=== PATIENT | female | born 1955 | race Caucasian/White ===

== ENCOUNTER → 2021-04-01 09:40 | Outpatient (CLI) | payer BC, SELFPAY ==
--- NOTE | ~2021-04-01 | US_ITS ---
EXAMINATION: US thyroid DATE: 04/01/2021 10:34 INDICATION: Multinodular goiter. TECHNIQUE: Multiple ultrasound images of the thyroid were obtained. COMPARISON: Ultrasound 06/13/2017 FINDINGS: The right thyroid lobe measures 5.9 x 3.3 x 2.0 cm. The left thyroid lobe measures 5.2 x 3.0 x 2.3 c m. There are numerous nodules in the thyroid. In the right thyroid lobe, there is an 11 mm solid, hy poechoic, chlkq-drtx-ozxd nodule with ill-defined margin without echogenic foci (TI-RADS TR4). In the right thyroid lobe, there is a 1.2 cm solid, hypoechoic, trdylu-zbaw-iqlx nodule with smooth margin without echogenic foci (TR5), increased from 1.0 cm. In the left thyroid lobe, there is a 1.9 cm sam d, hypoechoic, dhntp-zlzx-qzhd nodule with irregular margin and punctate echogenic foci (TR5), increa sed from 1.7 cm. In the left thyroid lobe, there is a 1.9 cm solid, hypoechoic, inzlb-onaq-dcha nodul e with lobulated margin without echogenic foci (TR4), increased from 1.7 cm. IMPRESSION: 1. Multinodular goiter. Ultrasound-guided fine-needle aspiration of 2 nodules is recommended. Reviewed, dictated and finalized at location A. IMPRESSION: 1. Multinodular goiter. Ultrasound-guided fine-needle aspiration of 2 nodules i s recommended.
== END ==
DX: E04.2 Nontoxic multinodular goiter (principal)
CPT/HCPCS: 76536

== ENCOUNTER → 2022-06-24 12:48 | Outpatient (CLI) | payer BC, SELFPAY ==
--- NOTE | ~2022-06-24 | US_ITS ---
EXAMINATION: US thyroid DATE: 06/24/2022 13:10 INDICATION: Nontoxic multinodular goiter. TECHNIQUE: Multiple ultrasound images of the thyroid were obtained. COMPARISON: Thyroid ultrasound 04/01/2021, 06/13/2017 FINDINGS: The right thyroid lobe measures 6.5 x 2.9 x 2.2 cm. The left thyroid lobe measures 6.5 x 2.7 x 2.6 c m. There are multiple nodules in the thyroid. In the left thyroid lobe, there is a 2.0 cm solid, hyp oechoic, wider than tall nodule with smooth margin without echogenic foci (TI-RADS TR4), stable from 06/13/17. In the left thyroid lobe, there is a 1.2 cm solid, hypoechoic, wider than tall nodule with s mooth margin and punctate echogenic foci (TR5), stable from 06/13/17. In the left thyroid lobe, there is a 1.6 cm solid, hypoechoic, wider than tall nodule with ill-defined margin and punctate echogenic foci (TR5), stable from 04/01/21. In the right thyroid lobe, there is a 1.9 cm solid, hypoechoic, wider than tall nodule with lobulated margin and punctate echogenic foci (TR5), stable from 06/13/17. In th e right thyroid lobe, there is a 1.3 cm solid, hypoechoic, wider than tall nodule with smooth margin without echogenic foci (TR4), mildly increased in size from 06/13/17. IMPRESSION: 1. Multinodular goiter. Given the history of outside benign biopsies, I have no specific management r ecommendations. Reviewed, dictated and finalized at location A. IMPRESSION: 1. Multinodular goiter. Given the history of outside benign biopsies, I have no specific management recommendations.
== END ==
PROVIDERS: PCP Family Medicine; Visit Provider Internal Medicine Endocrinology, Diabetes & Metabolism
DX: E04.2 Nontoxic multinodular goiter (principal)
CPT/HCPCS: 76536

== ENCOUNTER → 2022-08-27 14:55 | Outpatient (CLI) | payer BC, SELFPAY ==
--- NOTE | ~2022-08-27 | MM_ITS ---
EXAMINATION: MM screening [facility] w katie HISTORY: Screening TECHNIQUE: Craniocaudal and mediolateral oblique 3-D tomosynthesis images were obtained and synthetic 2-D images were generated. CAD analysis was submitted and interpreted. COMPARISON: Comparison to multiple prior studies sequentially, with oldest reviewed study dated 11/17. BREAST PARENCHYMAL COMPOSITION: There are scattered areas of fibroglandular density. FINDINGS: There is no evidence of suspicious mass, calcification, or architectural distortion to sugg est malignancy in either breast. There has been no suspicious interval change. IMPRESSION: 1. No mammographic evidence of malignancy. 2. Recommend routine screening mammography in one year. BI-RADS Category 1: Negative Reviewed, dictated and finalized at location A.
== END ==
PROVIDERS: PCP Family Medicine; Visit Provider Family Medicine
DX: Z12.31 Encounter for screening mammogram for malignant neoplasm of breast (principal)
CPT/HCPCS: 77063; 77067

== ENCOUNTER → 2023-09-07 11:33 | Outpatient (CLI) | payer BC, SELFPAY ==
--- NOTE | ~2023-09-07 | MM_ITS ---
EXAMINATION: MM screening [facility] w katie HISTORY: Screening mammogram TECHNIQUE: Craniocaudal and mediolateral oblique 3-D tomosynthesis images were obtained and synthetic 2-D images were generated. CAD analysis was submitted and interpreted. COMPARISON: 08/27/2022, 02/23/2018, 11/17/2017 BREAST PARENCHYMAL COMPOSITION: There are scattered areas of fibroglandular density. FINDINGS: Scattered benign-appearing calcifications are present. No suspicious mass, calcification, o r architectural distortion are identified in either breast to suggest malignancy. There has been no s uspicious interval change. IMPRESSION: 1. No mammographic evidence of malignancy. 2. Recommend routine screening mammography in one year. BI-RADS Category 2: Benign finding(s). Reviewed, dictated and finalized at location A. [employer]
== END ==
PROVIDERS: PCP Family Medicine; Visit Provider Family Medicine
DX: Z12.31 Encounter for screening mammogram for malignant neoplasm of breast (principal)
CPT/HCPCS: 77063; 77067

== ENCOUNTER 2024-07-26 15:47 | Outpatient (CLI) | payer BC, SELFPAY ==
--- NOTE | ~2024-07-26 | XR_ITS ---
EXAMINATION: XR chest 2V Exam Date/Time: 07/26/2024 15:51 CDT HISTORY: Chronic cough Comparison: None. RESULT: Lines, tubes, and devices: None. Lungs and pleura: Hemidiaphragm flattening. Increased AP diameter. No focal consolidation, pleural e ffusion, or pneumothorax. Cardiomediastinal silhouette: Unremarkable. Other: No acute osseous or upper abdominal finding. IMPRESSION: No acute cardiopulmonary process. Emphysematous change. Reviewed, dictated and finalized at location K.
== END 2024-07-26 15:48 | disposition home or self-care (01) ==
LOC: MICIMG 15:49
PROVIDERS: PCP Internal Medicine; Visit Provider Internal Medicine
DX: R05.3 Chronic cough (principal)
CPT/HCPCS: 71046

== ENCOUNTER 2024-09-09 11:19 | Outpatient (CLI) | payer BC, SELFPAY ==
--- NOTE | ~2024-09-09 | MM_ITS ---
EXAMINATION: MM screening [facility] BI w katie HISTORY: Screening mammogram TECHNIQUE: Craniocaudal and mediolateral oblique 3-D tomosynthesis images were obtained and synthetic 2-D images were generated. CAD analysis was submitted and interpreted. COMPARISON: 09/07/2023, 08/27/2022, 02/23/2018 BREAST PARENCHYMAL COMPOSITION:Not Dense. There are scattered areas of fibroglandular density. FINDINGS: No suspicious mass, calcification, or architectural distortion are identified in either [place] ast to suggest malignancy. There has been no suspicious interval change. IMPRESSION: No mammographic evidence of malignancy. Recommend routine screening mammography in one year. BI-RADS Category 1: Negative Reviewed, dictated and finalized at location . STAFF
== END 2024-09-09 11:20 | disposition home or self-care (01) ==
PROVIDERS: PCP Internal Medicine; Visit Provider Internal Medicine
DX: Z12.31 Encounter for screening mammogram for malignant neoplasm of breast (principal)
CPT/HCPCS: 77063; 77067

== ENCOUNTER 2025-03-21 13:39 | Outpatient (CLI) | payer BC, SELFPAY ==
--- NOTE | ~2025-03-21 | US_ITS ---
EXAMINATION: US thyroid DATE: 03/21/2025 14:13 INDICATION: Nontoxic goiter TECHNIQUE: Multiple ultrasound images of the thyroid were obtained. COMPARISON: 06/24/2022, 04/01/2021 and 06/13/2017 FINDINGS: The right thyroid lobe measures 6.6 x 2.8 x 2.1 cm. Within the mid pole of the right lobe of the thyroid gland is a 12 x 13 x 11 mm nodule: Composition - spongiform Echogenicity - hypoechoic (2) Shape - wider than tall Margin - smooth Echogenic foci - none. = TR2 not suspicious. Within the mid pole of the right lobe of the thyroid gland is a 14 x 12 x 12 mm nodule: Composition - spongiform Echogenicity - hypoechoic (2) Shape - wider than tall Margin - smooth Echogenic foci - none. = TR2 not suspicious. Within the lower pole of the right lobe of the thyroid gland is a 10 x 6 x 11 mm nodule: Composition - spongiform Echogenicity - hypoechoic (2) Shape - wider than tall Margin - smooth Echogenic foci - none. = TR2 not suspicious. The left thyroid lobe measures 5.5 x 2.7 x 2.3 cm. Within the upper pole of the left lobe of the thyroid gland is a 20 x 13 x 14 mm nodule: Composition - spongiform Echogenicity -isoechoic and hyperechoic (1) Shape - wider than tall Margin - smooth Echogenic foci - none. = TR 1, benign Within the mid pole of the left lobe of the thyroid gland is a 13 x 10 x 11 mm nodule: Composition - spongiform Echogenicity -isoechoic and hyperechoic (1) Shape - wider than tall Margin -ill-defined Echogenic foci - none. = TR 1, benign Within the mid pole of the left lobe of the thyroid gland is a 11 x 13 x 10 mm nodule: Composition -cystic or almost completely cystic Echogenicity -hypoechoic (2) Shape - wider than tall Margin -smooth Echogenic foci - none. = TR 2, not suspicious Within the lower pole of the left lobe of the thyroid gland are 3 subcentimeter nodules, only measure d in one dimension: Composition - spongiform Echogenicity -isoechoic and hyperechoic (1) Shape - wider than tall Margin -ill-defined Echogenic foci - none. = TR 1, benign The isthmus measures 0.83 cm in anterior to posterior dimension. Within the isthmus of the thyroid gland, to the left of midline is a 10 x 6 x 9 mm nodule: Composition - spongiform Echogenicity -hyperechoic and isoechoic (1) Shape - wider than tall Margin - smooth Echogenic foci -punctate echogenic foci (3) = TR 4, moderately suspicious FNA if greater than or equal to 1.5 cm Follow if greater than or equal to 1 cm There is otherwise unremarkable echotexture and echogenicity throughout the remainder of the thyroid gland. No additional discrete suspicious nodules identified. Normal vascular flow is present. IMPRESSION: Multiple TR 1 and TR 2 nodules detected bilaterally for which no follow-up and no FNA are recommended . A single TR 4 nodule within the isthmus of the thyroid gland to the left of midline, progressively de creased in size from 2021 and 2020 examinations, for which only follow-up is recommended by size and morphology criteria. Reviewed, dictated and finalized at location A. IMPRESSION: Multiple TR 1 and TR 2 nodules detected bilaterally for which no follow-up and no FNA are recommended. A single TR 4 nodule within the isthmus of the thyroid gland to the left of mid line, progressively decreased in size from 2021 and 2020 examinations, for whic h only follow-up is recommended by size and morphology criteria.
== END 2025-03-21 13:40 | disposition home or self-care (01) ==
DX: E04.9 Nontoxic goiter, unspecified (principal)
CPT/HCPCS: 76536